=== PATIENT | female | born 1980 | race Asian ===

== ENCOUNTER 2019-09-07 17:25 | Emergency (ER) | payer OTHER ==
[~2019-09-07] VITALS: Ht 167.6 cm; Wt 95.7 kg
[2019-09-07 19:13] LABS: PLATELET COUNT 248 K/uL (152-353)
[2019-09-07 19:21] LABS: POTASSIUM 3.7 mmol/L (3.6-5.2); SODIUM 143 mmol/L (136-145)
[2019-09-07 23:05] VITALS: BP 109/81; TEMP 97.7
== END 2019-09-07 23:05 | disposition home or self-care (01) ==
LOC: ED 17:25
PROVIDERS: Emergency Medicine
DX: J18.9 Pneumonia, unspecified organism (principal); I50.9 Heart failure, unspecified; R06.09 Other forms of dyspnea; R00.0 Tachycardia, unspecified; F17.210 Nicotine dependence, cigarettes, uncomplicated
CPT/HCPCS: 80053; 83690; 83735; 83880; 84484; 84702; 85027; 85379; 87040; 93005; 94664; 96365; 96375; 99284; J0696; J1940; Q9963

== ENCOUNTER 2019-10-03 23:18 | Emergency (ER) | payer OTHER ==
[~2019-10-03] VITALS: Ht 167.6 cm; Wt 95.7 kg
[2019-10-03] MEDS ORDERED: FURO20TA67 PO (23:32)
[2019-10-03] MEDS ORDERED: LISI10TA11 PO (23:32)
[2019-10-04 00:15] VITALS: BP 134/90; TEMP 97.9
== END 2019-10-04 00:15 | disposition home or self-care (01) ==
LOC: ED 23:18
DX: S93.492A Sprain of other ligament of left ankle, initial encounter (principal); W10.8XXA Fall (on) (from) other stairs and steps, initial encounter; Y92.89 Other specified places as the place of occurrence of the external cause
CPT/HCPCS: 99283